=== PATIENT | male | born 1950 | race Caucasian/White ===

== ENCOUNTER 2025-08-27 19:41 | Emergency (ER) | payer MEDICARE ==
[~2025-08-27] VITALS: Ht 170.2 cm; Wt 70.3 kg
[2025-08-27 20:38] VITALS: PULSE 67; RESP 18; TEMP 98.9; O2SAT 98
== END 2025-08-27 22:35 | disposition left against medical advice (07) ==
LOC: ER 21:52
DX: M79.601 Pain in right arm (principal)